=== PATIENT | female | born 1975 | race Caucasian/White ===

== ENCOUNTER → 2016-10-06 | Outpatient (CLI) | payer BC ==
[~2016-10-06] MED LIST: CHANTIX 1MG1 MG PO; COZAAR100 MG PO; FLEXERIL 1010 MG/TAB PO; NORCO 325 MG-51 TAB PO; PERCOCET 325 MG1 TA2 PO; PRIL40 PO
== END ==
LOC: COL.RAD 12:46
DX: S73.192A Other sprain of left hip, initial encounter (principal); X58.XXXA Exposure to other specified factors, initial encounter
CPT/HCPCS: A9585; Q9967

== ENCOUNTER → 2016-10-14 | Outpatient (CLI) | payer BC | LOC: COL.RAD 07:54 | DX: M25.552 Pain in left hip (principal); S73.101A Unspecified sprain of right hip, initial encounter; X58.XXXA Exposure to other specified factors, initial encounter | CPT/HCPCS: A9585; J3301; Q9967 ==

== ENCOUNTER → 2016-10-20 | Outpatient (CLI) | payer BC | LOC: COL.RAD 08:47 | DX: M25.551 Pain in right hip (principal) | CPT/HCPCS: J3301; Q9967 ==

== ENCOUNTER → 2017-02-23 | Outpatient (CLI) | payer BC | LOC: MC.RAD 07:40 | DX: Z12.31 Encounter for screening mammogram for malignant neoplasm of breast (principal) ==

== ENCOUNTER → 2017-12-20 | Outpatient (CLI) | payer BC | LOC: COL.RAD 12:59 | DX: S73.101A Unspecified sprain of right hip, initial encounter (principal); S73.102A Unspecified sprain of left hip, initial encounter | CPT/HCPCS: J3301; Q9967 ==

== ENCOUNTER → 2019-05-05 | Outpatient (CLI) | payer BC | LOC: MC.RAD 04-13 08:00 | DX: Z12.31 Encounter for screening mammogram for malignant neoplasm of breast (principal) ==

== ENCOUNTER 2019-07-07 15:30 | Outpatient (RCR) | payer BC | END 2019-07-17 14:54 | disposition home or self-care (01) | LOC: MKS.ESL.PT 15:30 | DX: M70.62 Trochanteric bursitis, left hip (principal); M70.61 Trochanteric bursitis, right hip | CPT/HCPCS: G0283-GP ==

== ENCOUNTER 2019-07-19 09:57 | Emergency (ER) | payer BC ==
[~2019-07-19] VITALS: Ht 170.2 cm; Wt 81.8 kg
[2019-07-19 10:54] VITALS: BP 108/65; PULSE 114; TEMP 100.6
== END 2019-07-19 12:31 | disposition home or self-care (01) ==
LOC: COL.ER 09:57
DX: J11.1 Influenza due to unidentified influenza virus with other respiratory manifestations (principal); E03.9 Hypothyroidism, unspecified; K21.9 Gastro-esophageal reflux disease without esophagitis; F17.210 Nicotine dependence, cigarettes, uncomplicated; Z98.51 Tubal ligation status; Z90.710 Acquired absence of both cervix and uterus

== ENCOUNTER → 2020-05-06 | Outpatient (CLI) | payer BC | LOC: MC.RAD 08:15 | DX: Z12.31 Encounter for screening mammogram for malignant neoplasm of breast (principal) ==

== ENCOUNTER 2020-07-17 16:30 | Outpatient (RCR) | payer BC | END 2020-07-22 | disposition home or self-care (01) | LOC: MKS.ESL.PT | DX: M25.551 Pain in right hip (principal); M25.552 Pain in left hip ==

== ENCOUNTER → 2021-07-01 | Outpatient (CLI) | payer BC | LOC: MC.RAD 07:42 | DX: Z12.31 Encounter for screening mammogram for malignant neoplasm of breast (principal) ==

== ENCOUNTER → 2022-10-15 | Outpatient (CLI) | payer BC | LOC: MC.RAD 08-13 08:45 | DX: Z12.31 Encounter for screening mammogram for malignant neoplasm of breast (principal) ==

== ENCOUNTER → 2023-12-16 | Outpatient (CLI) | payer BC | LOC: MC.RAD 14:25 | DX: Z12.31 Encounter for screening mammogram for malignant neoplasm of breast (principal) ==